=== PATIENT | female | born 1995 | race Caucasian/White ===

== ENCOUNTER → 2024-01-11 10:49 | Outpatient (CLI) | payer OTHER, SELFPAY ==
[2024-01-11 11:30] LABS: Add Manual Diff / Slide Review NO; Basophils Absolute Auto 0 /uL (0-100); Basophils Percent Auto 0.4 % (0-2); Eosinophils Absolute Auto 0 /uL (0-450); Eosinophils Percent Auto 0.5 % (2-4); Hematocrit 37.3 % (36-46); Lymphocytes Absolute Auto 700 /uL (1100-4500); Lymphocytes Percent Auto 7.7 % (25-40); Mean Corpuscular HGB Conc 34.9 % (30-36); Mean Corpuscular Hemoglobin 32.3 PG (26-34); Mean Corpuscular Volume 92.5 fL (80-100); Monocytes Absolute Auto 500 /uL (0-900); Monocytes Percent Auto 6.2 % (3-14); Neutrophils Absolute Auto 7400 /uL (1500-7000); Neutrophils Percent Auto 85.2 % (50-75); Platelet Count 210 X10^3/uL (150-400); Red Blood Cell Count 4.03 X10^6/uL (4.0-5.2); Red Cell Distribution Width 13.2 % (11.6-14.8); White Blood Cell Count 8.7 X10^3/uL (4.5-11.0)
[2024-01-11 11:40] LABS: Hemoglobin A1C% w Est Avg Glu 5.2 % (4.0-6.0)
[2024-01-11 11:46] LABS: Alanine Aminotransferase 16 IU/L (<35); Aspartate Aminotransferase 21 IU/L (14-36); BUN Creatinine Ratio 24.6 (6-22); Blood Urea Nitrogen 15 mg/dL (7-17); Estimated Glomerular Filt Rate > 60 mL/min (>60); Uric Acid 3.4 mg/dL (2.5-6.2)
[2024-01-11 12:11] LABS: Rubella Antibody IgG > 350.0 IU/mL (>15)
[2024-01-11 12:15] LABS: Hepatitis B Surface Antigen NEGATIVE s/c (NEGATIVE)
[2024-01-11 12:27] LABS: HIV 1 & 2 Ab/Ag 4th Gen Combo NEGATIVE (NEGATIVE)
[2024-01-11 12:31] LABS: Hep C Virus Ab w/Reflex Quant NEGATIVE s/c (NEGATIVE)
[2024-01-11 14:08] LABS: Creatinine Urine Random 61.2 mg/dL; Protein (Total) Urine Random 12 mg/dL (0-12); Protein Creatinine Ratio Urine 0.19 GRAM/24H
[2024-01-11 14:54] LABS: Urine N gonorrhoeae NOT DETECTED
[2024-01-11 14:56] LABS: Urine Chlamydia NOT DETECTED
[2024-01-12 09:51] LABS: Varicella IgG Antibody >4000 index (Immune >165)
[2024-01-15 06:59] LABS: RPR Screen Non Reactive (Non Reactive)
== END ==
PROVIDERS: Referring Provider Student in an Organized Health Care Education/Training Program; Visit Provider Student in an Organized Health Care Education/Training Program
DX: O09.899 Supervision of other high risk pregnancies, unspecified trimester (principal); Z94.0 Kidney transplant status
CPT/HCPCS: 36415; 80055; 82565; 82570; 83036; 84156; 84450; 84460; 84520; 84550; 86787; 86803; 86850; 86900; 86901; 87086; 87389; 87491; 87591

== ENCOUNTER → 2024-05-13 14:06 | Outpatient (CLI) | payer OTHER, SELFPAY ==
--- NOTE | 2024-05-13 | DI.US.S_ITS ---
PROCEDURE: US OB LIMITED INDICATIONS: Growth check OUTSIDE/PRIOR DATING DATA: Last menstrual period (LMP): Unknown LMP-based estimated date of delivery (SHAWN): Un known First dating scan (date and location): Not available Estimated date of delivery (SHAWN) from first dating scan: Not available The calculations are made using the working SHAWN of 07/19/2024 TECHNIQUE: Real-time scanning was performed of the fetus, with image documentation and biometric measurements. Endovaginal scanning: Not performed COMPARISON: [facility], , US OB <= 14 WEEKS FETUS, 01/11/2024, 10:50. FINDINGS: General: A single living intrauterine gestation is present. Presentation: Vertex Placenta: Placental position is anterior, without previa. Amniotic fluid index: 16.7 cm, normal range is 5-24 cm. Single deepest vertical pocket is 5.1 cm. heart rate: 165 beats per minute. Maternal cervical canal: Closed and measures 3.3 cm long. Normal lower limit is 2.5 cm. biometrics: Biparietal diameter: 8.0 cm, 32 weeks, 1 day Head circumference: 29.3 cm, 32 weeks, 2 days Abdominal circumference: 28.2 cm, 32 weeks, 2 days Femur length: 5.9 cm, 30 weeks, 6 days Clinically estimated gestational age: 30 weeks, 1 day Composite gestational age from present scan: 31 weeks, 6 days Estimated weight and percentile: 1844 g, 90% IMPRESSION: 1. Single live intrauterine gestation with fetus in vertex presentation. heart rate is 165 beats per minute. Normal ALEJANDRA at 16.7 cm. Cervix is closed and measures 3.3 cm in length. 2. Normal growth. Estimated weight is at 90%. We strive to produce accurate, complete, and clear reports of imaging services. To assist us in improving patient care, this report was composed using standard report templates and voice recognition software. Therefore, it may contain abnormal punctuation, insertions and/or omissions. Occasional wrong-word or sound-alike substitutions may occur. Though we review the report and make efforts to correct it, we do recommend that the report be read carefully in proper context to recognize any text inaccuracies. Dictated by: Jasvir Doran M.D. on 05/13/2024 at 17:45 Approved by: Jasvir Doran M.D. on 05/13/2024 at 17:47
== END ==
PROVIDERS: Referring Provider Student in an Organized Health Care Education/Training Program; Visit Provider Student in an Organized Health Care Education/Training Program
DX: O09.893 Supervision of other high risk pregnancies, third trimester (principal); O10.913 Unspecified pre-existing hypertension complicating pregnancy, third trimester; Z94.0 Kidney transplant status; Z3A.31 31 weeks gestation of pregnancy
CPT/HCPCS: 76815

== ENCOUNTER → 2024-06-23 09:31 | Outpatient (CLI) | payer OTHER, SELFPAY ==
[2024-06-24 08:45] LABS: Strep Grp B PCR POS for Grp B Strep
== END ==
PROVIDERS: Referring Provider Obstetrics & Gynecology; Visit Provider Obstetrics & Gynecology
DX: Z34.83 Encounter for supervision of other normal pregnancy, third trimester (principal)
CPT/HCPCS: 87653

== ENCOUNTER 2024-07-22 10:11 | Inpatient (IN) | payer OTHER, SELFPAY ==
[2024-07-22 11:56] VITALS: BP 127/84
--- NOTE | 2024-07-22 12:13 | PM.OBHP.1 ---
OB HPI Date/Time Date of admission: 07/22/24 Date Patient Seen: 07/22/24 Time Patient Seen: 12:13 History of Present Condition Chief complaint: LABOR : 2 Para: 1 Estimated Date of Delivery: 07/21/24 Estimated Gestational Age (weeks): 40+1 Narrative: Vane Albarran is a 28 year old female Comments: presenting for painful contractions since this morning. Denies loss of fluid or vaginal bleeding. History of Present care: good care Dating criteria: LMP confirmed by 1st trimester US Ultrasounds: normal mid trimester US Medical complications: other Narrative: Ultrasound Ultrasound Details:: Initial dating US at outside facility: [facility] 07/21/24 Dating US 12/14/23: [facility] IUP with CRL 2.06cm (8+5wks); normal appearing uterus, cervix, bilateral ovaries Anatomy with MFM 03/10/24: normal anatomy, anterior placenta, EFW 68%ile Growth sono 05/13/24: EFW 90%ile Specific Issues/Plans FSGS, s/p renal transplant 04/2022 (in right pelvis, [place] kidneys still in place)--> sees Dr. Gay Edwards @[facility], on prednisone, tacrolimus, azathioprine; following with [facility] Dr. Saritha Phillips, plan for monthly telemedicine consults [ ] serial growth 28, 32, 36wks--> 05/13 EFW 90%ile [ ] twice weekly NSTs at 32wks (pt declines) [ ] delivery 37-39wks per [facility] (pt declines until worsening medical issues or 41 weeks) cHTN (on carvedilol) with hx of superimposed preeclampsia--> tight control BPs <130/80; [x ] baseline pre-e labs (Cr 0.61), urine p:c (0.19); [ x] ASA GBS positive--> pt declines prophylactic antibiotics during labor Anemia--> H/H 10.6/31.3; [x ] repeat H/H at 36wks Rh negative--> [x ] rhogam 28wks (05/05/24) Hx of mediolateral episiotomy in G1, as well as PPH with D&C for retained POC at 6days Declines TDaP and other vaccinations in ; declined 1hr GTT, did 1wk of fingersticks which were normal Liam Assigned to Katie Preadmission Labs Blood type: 0 (-) negative -: Antibody screen: negative, Cystic fibrosis screen: unknown, GBS status: positive, HBsAG: negative, HIV: negative, HSV 1: unknown, HSV 2: unknown and RPR/VDLR: negative -: Chlamydia screen: not detected and Gonorrhea screen: not detected -: Rubella: immune and Varicella: immune HCT: 37.3 HCAB: negative PAP: Normal Evaluation Evaluation Baseline heart rate: 140 Variability: Moderate (11-25) monitor accelerations: Present Monitor Decelerations: Absent Contraction Frequency (minutes): 4 Status: Category l Dilation (cm): 4 Effacement (%): 70 station: -2 [facility] Medical History (Updated 06/30/24 @ 13:39 by Jyotsna Wilson DO) History of episiotomy Preeclampsia hemorrhage Peritoneal dialysis status 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 Surgical History (Updated 12/04/23 @ 09:39 by Jennifer Bryant RN) [place] teeth extracted H/O hand surgery Kidney transplant recipient (~2019) Family History (Updated 12/04/23 @ 09:40 by Jennifer Bryant RN) Mother Cathy's thyroiditis Brother Juvenile rheumatoid arthritis Grandmother Alzheimer's dementia Social History marital status: number of children: 1 household members: spouse and children lives independently: Yes caregiver/support person: Yes housing: house pets and animals: Yes (1 dog) education level: vocational occupational status: unemployed current occupational exposures/hazards: No special cesilia needs: No travel history: recent seatbelt use: always helmet use: Yes water heater temp set < 120 deg: Yes working smoke detector in home: Yes fire extinguisher in home: Yes carbon monox detector in home: Yes firearms in home: Yes firearms unloaded and locked: Yes do you feel safe at home: Yes Smoking Status: Never smoker second hand exposure: No alcohol intake: never substance use type: does not use during the past year weight has: other well-balanced diet: daily or most days daily servings fruits/ve-4 caffeine: No (occasional decaf) Type(s) of exercise: running frequency: 3-4 times per week duration: 30-45 minutes/day Meds Home Medications and Allergies Home Medications Medication Instructions Recorded Confirmed Type azathioprine 50 mg tablet (Imuran) 25 mg PO DAILY 12/04/23 07/08/24 History carvedilol 6.25 mg tablet 6.25 mg PO BID 12/04/23 07/08/24 History cholecalciferol (vitamin D3) 50 50 mcg PO DAILY 12/04/23 07/08/24 History mcg (2,000 unit) capsule magnesium 200 mg tablet 400 mg PO BID 12/04/23 07/08/24 History prednisone 5 mg tablet 7.5 mg PO DAILY 12/04/23 07/08/24 History vitamin-ferrous sulfate tab PO 12/04/23 07/08/24 History 27 mg iron-folic acid 0.8 mg tablet tacrolimus 1 mg capsule, 3 mg PO Q12H 12/04/23 07/08/24 History immediate-release blood sugar diagnostic (Blood #100 ea 04/07/24 07/08/24 Rx Glucose Test strips) blood-glucose meter (Blood Glucose #1 ea 04/07/24 07/08/24 Rx Monitoring kit) lancets #100 ea 04/07/24 07/08/24 Rx Allergies Allergy/AdvReac Type Severity Reaction Status Date / Time cephalexin Allergy Mild Rash Verified 07/15/24 09:10 adalimumab AdvReac Unknown Verified 07/15/24 09:10 etanercept AdvReac Unknown Verified 07/15/24 09:10 Review of Systems Review of Systems ROS: Yes All systems reviewed with the patient and are negative except as otherwise documented OB Exam Vital signs Blood Pressure: 127/84 Pulse Rate: 95 Respiratory Rate: 16 Temperature: 97.5 F [facility] Head: normal to inspection Resp Effort & Inspection: normal respiratory effort and able to speak in complete sentences Extremities Lower extremity: Yes normal to inspection GI Other: gravid, nontender, nondistended Objective Labs 07/22/24 11:34 07/22/24 11:31 Assessment and Plan Assessment and Plan Assessment and Plan narrative: 28yo at 40+1wks admitted in latent labor. -CBC, T&S on admission -continuous EFM -epidural PRN -GBS POSITIVE, however patient declines intrapartum antibiotics; patient has been counseled extensively regarding the risk to her baby, and patient declines -PPH risk moderate, given hx of hemorrhage -VTE risk low, SCDs with epidural -anticipate L&D Counseling: Common procedures and interventions related to the management of were explained to the patient, including assistance at vaginal delivery with episiotomy, vacuum, or forceps, use of medications to stop premature labor or induce labor, and assessment including auscultation (listening to the heart), use of electronic monitoring (external and / or internal), and use of scalp electrode and/or intrauterine pressure catheter.? It was also explained that approximately 20-30% of mothers have a need for delivery during their labor course. It was explained to the patient that , labor and delivery are ordinarily normal physiological events and can be expected to provide a healthy outcome for mother and baby in the majority of cases. However, there are complications that may arise during , labor, and delivery, such as: hemorrhage requiring administration of blood and/or blood products, surgical intervention, possibly even hysterectomy for life-saving purposes; possibility of infection requiring antibiotics, prolonged hospital stay, and rarely surgical intervention; possibility of blood clots;? possibility of retained products of conception requiring surgical intervention;? possibility of serious tears or injury to the vagina, cervix, perineum, or rectum;? possibility of injury to abdominal structures if delivery is required;? and rarely maternal or may occur. Time-Based Coding :: [30min] spent with patient and on the chart (including review of chart, obtaining history, exam, reviewing outside data, placing orders, documenting exam and treatment plan, and counseling patient) on [07/22/24].
[2024-07-22 12:21] VITALS: BP 127/84; PULSE 95; RESP 16; TEMP 36.4
[2024-07-22 12:21] LABS: Add Manual Diff / Slide Review NO; Basophils Absolute Auto 0 /uL (0-100); Basophils Percent Auto 0.3 % (0-2); Eosinophils Absolute Auto 100 /uL (0-450); Eosinophils Percent Auto 0.6 % (2-4); Hematocrit 32.6 % (36-46); Hemoglobin 11.5 g/dL (12.0-16.0); Lymphocytes Absolute Auto 900 /uL (1100-4500); Lymphocytes Percent Auto 8.2 % (25-40); Mean Corpuscular HGB Conc 35.4 % (30-36); Mean Corpuscular Hemoglobin 34.1 PG (26-34); Mean Corpuscular Volume 96.3 fL (80-100); Monocytes Absolute Auto 600 /uL (0-900); Monocytes Percent Auto 6.1 % (3-14); Neutrophils Absolute Auto 8900 /uL (1500-7000); Neutrophils Percent Auto 84.8 % (50-75); Platelet Count 187 X10^3/uL (150-400); Red Blood Cell Count 3.39 X10^6/uL (4.0-5.2); Red Cell Distribution Width 13.3 % (11.6-14.8); White Blood Cell Count 10.5 X10^3/uL (4.5-11.0)
[2024-07-22 12:39] LABS: Alanine Aminotransferase 16 IU/L (<35); Albumin 3.5 g/dL (3.5-5.0); Albumin Globulin Ratio 1.3 (1.0-2.8); Alkaline Phosphatase 131 U/L (38-126); Aspartate Aminotransferase 29 IU/L (14-36); BUN Creatinine Ratio 18.5 (6-22); Bilirubin Total 0.6 mg/dL (0.2-1.3); Blood Urea Nitrogen 15 mg/dL (7-17); Calcium 9.2 mg/dL (8.4-10.2); Carbon Dioxide 24 mmol/L (22-32); Chloride 104 mmol/L (98-107); Estimated Glomerular Filt Rate > 60 mL/min (>60); Globulin 2.6 g/dL (1.7-4.1); Glucose 105 mg/dL (70-100); HEMOLYSIS < 15 (0-50); Potassium 4.2 mmol/L (3.4-5.1); Sodium 132 mmol/L (137-145); Total Protein 6.1 g/dL (6.3-8.2)
[2024-07-22] MEDS: LACTATED RINGERS 1,000 ML 100 ML IV ×2 (16:55→17:58)
[2024-07-22] MEDS: TERBUTALINE 1 MG/ML VIAL 0.25 MG SUBCUT ×2 (17:04→17:42)
--- NOTE | 2024-07-22 18:22 | P.PNOB_ITS ---
Date/Time Date Patient Seen: 07/22/24 Time Patient Seen: 16:00 Pain Control Pain control: tolerating well Assessment and Plan Assessment: active labor Comments: 28yo at 40+1wks admitted in early labor. She has progressed unmedicated over the course of the afternoon to anterior lip/100/+1. Patient had an uncontrollable urge to push, thus pushing efforts were started around 5pm. Desp ite good maternal pushing efforts in different positions, vertex has not descended past +1. The anterior lip has slowly reduced during this time of pushing efforts. The heart rate tracing has been category 2 since her membranes ruptured at 5:15pm. There have been several prolonged decels that have resolved with position changes, IV fluids, and terbutaline administration x2. The position feels asynclitic, and I have not been able to turn the baby with manual rotation efforts. At this point, I have discussed with the patient that the fetus is too high in the pelvis to help with an operative vaginal delivery safely. Given that she has not made much progress in bringing the baby down, we discussed trying to get an epidural to see if this would help relax her pelvis in a way to allow the fetus to turn and come down OA. We also discussed that if she is not able to deliver the baby after another 1hr of pushing efforts, or if the heart rate tracing doesn't tolerate continued pushing, then I will have to recommend a . -pt desires to try an epidural at this time -once she is comfortable with this in place, will resume pushing efforts
--- NOTE | 2024-07-22 18:57 | P.PCN_ITS ---
Regional Block Pre-procedure Procedure: Continuous Lumbar Epidural for L&D Attending OB provider: Jyotsna Wilson PMH/ROS narrative: 28 y/o in active labor requesting LIBERTY. PSH/Anesthesia history narrative: See pre-anesthesia evaluation form for PSH/PMH/assessment. ASA Class: III Labs: Hct 32.6 % (36-46) L 07/22/24 11:34 Plt Count 187 X10^3/uL (150-400) 07/22/24 11:34 Medications: Current Medications Generic Name Dose Route Start Last Admin Trade Name Freq PRN Reason Stop Dose Admin Calcium Carbonate 1,000 mg 07/22/24 11:53 Calcium Carbonate 500 Mg Tab PO Q2HR PRN Dyspepsia Carboprost Tromethamine 250 mcg 07/22/24 11:53 Carboprost 250 Mcg/Ml Ampul IM Q90M PRN Bleeding Diphenhydramine HCl 25 mg 07/22/24 18:54 Diphenhydramine 50 Mg/Ml Vial IV Q10M PRN Pruritis Diphenhydramine HCl 25 mg 07/22/24 18:56 Diphenhydramine 50 Mg/Ml Vial IV 07/23/24 18:56 Q3HR PRN PRURITUS Ephedrine Sulfate 10 mg 07/22/24 18:54 Ephedrine 50 Mg/Ml Vial IV Q5M PRN Blood pressure decrease more than 20% of baseline. Fentanyl 50 mcg 07/22/24 11:53 Fentanyl 100 Mcg/2 Ml Inj IV Q1H PRN Pain, Moderate (4-6) Lactated Ringer's 1,000 mls @ 100 mls/hr 07/22/24 12:00 07/22/24 17:58 Lactated Ringers IV 07/22/24 21:59 100 mls/hr CONT FEDERICO Administration Oxytocin/Lactated Ringer's 30 unit in 500 mls @ 200 mls/hr 07/22/24 11:53 Oxytocin Premix IV CONT PRN Bleeding Protocol Tranexamic Acid 1,000 mg/ 100 mls @ 600 mls/hr 07/22/24 11:53 Sodium Chloride IV NOW PRN Bleeding Ampicillin Sodium 1,000 mg/ 100 mls @ 200 mls/hr 07/22/24 16:00 Sodium Chloride IV Q4H FEDERICO FENT 2MCG/ML BUPIV 0.125% EPI 200 mcg in 100 mls @ 8 mls/hr 07/22/24 18:45 Fentanyl/Bupiv/Ns 2mcg/Ml - 0.125% EPIDURAL CONT FEDERICO Lidocaine HCl 20 ml 07/22/24 11:53 Lidocaine 1% 20 Ml INJ INTRA-OP PRN Post Delivery Methylergonovine Maleate 0.2 mg 07/22/24 11:53 Methylergonovine 0.2 Mg Tablet PO Q6HR PRN Heavy Bleeding Methylergonovine Maleate 0.2 mg 07/22/24 11:53 Methylergonovine 0.2 Mg/Ml Vial IM NOW PRN Bleeding Mineral Oil 30 ml 07/22/24 11:53 Mineral Oil 30 Ml Udc TOP PRN PRN Version Misoprostol 800 mcg 07/22/24 11:53 Misoprostol 200 Mcg Tablet NH NOW PRN Bleeding Misoprostol 400 mcg 07/22/24 11:53 Misoprostol 200 Mcg Tablet SL NOW PRN Bleeding Naloxone HCl 0.2 mg 07/22/24 11:53 Naloxone 0.4 Mg/Ml Vial IV Q2MIN PRN Opiate Reversal Naloxone HCl 0.4 mg 07/22/24 18:56 Naloxone 0.4 Mg/Ml Vial IV Q2MIN PRN Opiate Reversal Naloxone HCl 0.1 mg 07/22/24 18:56 Naloxone 0.4 Mg/Ml Vial IV 07/22/24 18:57 NOW ONE Ondansetron HCl 4 mg 07/22/24 11:53 Ondansetron 4 Mg/2 Ml Inj IV Q4HR PRN Nausea And Vomiting Ondansetron HCl 4 mg 07/22/24 21:00 Ondansetron 4 Mg/2 Ml Inj IV 07/23/24 01:01 Q4HR [facility] Oxytocin 10 unit 07/22/24 11:53 Oxytocin 10 Unit/Ml Vial IM NOW PRN Bleeding Allergies: Allergies Allergy/AdvReac Type Severity Reaction Status Date / Time cephalexin Allergy Mild Rash Verified 07/15/24 09:10 adalimumab AdvReac Unknown Verified 07/15/24 09:10 etanercept AdvReac Unknown Verified 07/15/24 09:10 Procedure Insertion date: 07/22/24 Insertion time: 18:35 Prep/Local: 1% lidocaine (3mL to L3/L4 interspace. CHG to back for skin prep.) Interspace: L3/L4 Patient position: sitting Needle: 18 gauge Use It Bettertead ((27g Pencan through Hustead for CSE - 1mL of 0.25% bupivacaine intrathecal)) Loss of resistance with: saline JURGEN at (cm): 4 Catheter placed at SKIN (cm): 10 Catheter in SPACE (cm): 6 Insertion: No CSF, No Blood, No Paresthesia with insertion, No Paresthesia with injection and No Test dose reaction Initial Medications TEST DOSE time: 18:36 TEST DOSE: 1.5% lidocaine with epinephrine 1:200k (mL): 3 BOLUS DOSE med: other (No bolus dose given via epidural) Infusion INFUSION: 0.125% bupivacaine and with fentanyl 2 mcg/mL Initial rate (mL/hr): 8 Post-procedure Anesthesia date START: 07/22/24 Anesthesia time START: 18:26 Anesthesia date END: 07/22/24 Anesthesia time END: 19:50 Post-procedure Anesthesia Assessment: Yes CV function: HR/BP stable, Yes Resp function: RR/sat/airway adequate, Yes Post-op hydration adequate, Yes Pain control adequate, Yes Nausea & vomiting absent, Yes Temperature > 36 C and Yes Mental status appropriate
[2024-07-22] MEDS: METHYLERGONOVINE 0.2 MG/ML VIAL IM (20:00)
[2024-07-22] MEDS: OXYTOCIN PREMIX 30 UNIT/500 ML PLAST..BAG 200 UNIT IV (20:08)
--- NOTE | 2024-07-22 20:36 | PM.OBPRVD ---
Labor & Delivery Delivery date: 07/22/24 Intrapartal Events: Prolonged 2nd Stage > 2.5 hours Delivery monitor: external uterine and internal FHT Route of delivery: forceps Indication for instrumentation: other (arrest of descent) L&D Laceration Description: Perineal - 3rd Degree (3a) Delivery repair: vicryl Estimated blood loss (mL): 900 Quantitative Blood Loss: 1,191 Anesthesia Type: Epidural Complications: blood loss due to bleeding from laceration Narrative: The patient progressed to C/C/+1 without pitocin augmentation or epidural anesthesia, and pushed with good maternal effort for approximately 2hrs. During this time, the heart rate tracing was primarily category 2 with moderate variability with early/late/prolonged decels. The vertex was noted to be LOT. Attempts to manually rotate the vertex to direct OA or OP were unsuccessful. She accepted an epidural for anesthesia, and pushing efforts were started again. After 20 more min of pushing, there was descent of the head to +2 station, but no further. At this time, given the persistent category 2 tracing, she was counseled and consented for an attempted low forceps delivery. Anesthesia was noted to be adequate, the bladder was recently drained and pediatric care was at the bedside. The vertex was palpated again, and the sagittal suture was noted to be slightly off midline to the left, thus I felt the forcep blades could be applied. The blades of the [place] forceps were then placed without difficulty and checks confirmed appropriate placement. With several maternal expulsive efforts, as well as traction on the forceps, the vertex was delivered to , after which the forceps were disarticulated, followed by delivery of the vertex in LOP position and restituted LOT. The anterior shoulder delivered with gentle downward pressure. Nuchal cord x2 was noted and reduced. The posterior shoulder and rest of body delivered with ease. The cord was doubly clamped and cut after a 60sec delay with the infant placed on maternal abdomen. The placenta delivered spontaneously and was intact with a 3-vessel cord. The fundus was noted to be firm with bimanual massage and pitocin. Inspection of the cervix, vagina, and perineum was notable for a 3a laceration. Repair was performed using 3-0 Vicryl in a series of interrupted sutures, with the 2nd degree portion repaired in a running, unlocked fashion. Skin was reapproximated in a running, subcuticular fashion. At the end of the repair, all tissues noted to be hemostatic. During the repair, she received one dose of methergine to aid in uterine tone. Majority of the blood loss was noted to be due to the lacerations. At the end of the repair, all sponges were confirmed removed from the vagina, and lap/instrument counts were correct. The patient tolerated delivery well and remained in the labor room with the at the bedside. The infant was inspected and no bruising or forceps markings were noted. [place] Baby 1: gender: Male Presentation: vertex Position: Left Occiput Posterior Placenta delivery description: Spontaneous Cord Vessel Description: 3 Vessels, Nuchal Cord (x2) and Reduced score (1 min): 7 score (5 min): 9 weight: 9 lb 5.914 oz Plan for aftercare: Routine care (plan for repeat CBC in the AM; advised pt to use stool softeners due to 3a laceration)
[2024-07-22] MEDS: DERMOPLAST SPRAY 20% 60 ML 1 SPRAY TOP (23:49)
[2024-07-22] MEDS: WITCH HAZEL/GLYCERIN PADS 1 EACH TOP (23:50)
[2024-07-23] MEDS: ACETAMINOPHEN 325 MG TABLET 650 MG PO ×3 (01:17→16:43)
[2024-07-23 06:46] LABS: Add Manual Diff / Slide Review NO; Basophils Absolute Auto 0 /uL (0-100); Basophils Percent Auto 0.2 % (0-2); Eosinophils Absolute Auto 0 /uL (0-450); Eosinophils Percent Auto 0.3 % (2-4); Hematocrit 24.7 % (36-46); Hemoglobin 8.9 g/dL (12.0-16.0); Lymphocytes Absolute Auto 1200 /uL (1100-4500); Lymphocytes Percent Auto 8.5 % (25-40); Mean Corpuscular HGB Conc 35.9 % (30-36); Mean Corpuscular Hemoglobin 34.3 PG (26-34); Mean Corpuscular Volume 95.4 fL (80-100); Monocytes Absolute Auto 1600 /uL (0-900); Monocytes Percent Auto 11.5 % (3-14); Neutrophils Absolute Auto 11100 /uL (1500-7000); Neutrophils Percent Auto 79.5 % (50-75); Platelet Count 186 X10^3/uL (150-400); Red Blood Cell Count 2.59 X10^6/uL (4.0-5.2); Red Cell Distribution Width 13.2 % (11.6-14.8)
--- NOTE | 2024-07-23 08:38 | PM.OBPN.1 ---
Subjective - OB Subjective Patient comments: no complaints and pain well controlled Maidens baby status: doing well Maidens feeding status: exclusively breast feeding Narrative: PPD1 s/p FAVD, 3rd degree laceration, PPH with asymptomatic acute blood loss anemia Date Patient Seen: 07/23/24 Time Patient Seen: 07:45 Exam Vital Signs (past 8 hours): BP 115-127/73-83 HR 77-119 RR 16-18 Tm 100.3F/Tc 98.8F Const General: cooperative and other (pale appearing) Nutritional Appearance: average body habitus Orientation: alert, awake and oriented x3 Chest Chest: normal inspection of the chest Breast inspection: normal inspection of the breasts Resp Effort & Inspection: normal respiratory effort Cardio Pulses: normal peripheral pulses GI Inspection: normal to inspection Palpation: soft Other: fundus firm << umb Other: deferred per shared decision making with patient, robyn wnl per RN Skin General: no rashes or lesions noted Neuro General: patient alert, patient awake and patient oriented x3 Psych Mental Status: mental status grossly normal Judgment: fair Objective Labs 07/23/24 06:25 07/22/24 11:31 Labs: Laboratory Results - last 24 hr 07/22/24 07/22/24 07/23/24 11:31 11:34 06:25 WBC 10.5 14.0 H RBC 3.39 L 2.59 L Hgb 11.5 L 8.9 L Hct 32.6 L 24.7 L MCV 96.3 95.4 MCH 34.1 H 34.3 H MCHC 35.4 35.9 RDW 13.3 13.2 Plt Count 187 186 Neut % (Auto) 84.8 H 79.5 H Lymph % (Auto) 8.2 L 8.5 L [place] % (Auto) 6.1 11.5 Eos % (Auto) 0.6 L 0.3 L Baso % (Auto) 0.3 0.2 Neut # (Auto) 8900 H 05145 H Lymph # (Auto) 900 L 1200 [place] # (Auto) 600 1600 H Eos # (Auto) 100 0 Baso # (Auto) 0 0 Sodium 132 L Potassium 4.2 Chloride 104 Carbon Dioxide 24 BUN 15 Creatinine 0.81 Estimated GFR > 60 BUN/Creatinine Ratio 18.5 Glucose 105 H Calcium 9.2 Total Bilirubin 0.6 AST 29 ALT 16 Alkaline Phosphatase 131 H Total Protein 6.1 L Albumin 3.5 Globulin 2.6 Albumin/Globulin Ratio 1.3 Blood Type O Negative Antibody Screen Positive Antibody Identification Maternal Bleed Cancelled 07/23/24 06:53 WBC RBC Hgb Hct MCV MCH MCHC RDW Plt Count Neut % (Auto) Lymph % (Auto) [place] % (Auto) Eos % (Auto) Baso % (Auto) Neut # (Auto) Lymph # (Auto) [place] # (Auto) Eos # (Auto) Baso # (Auto) Sodium Potassium Chloride Carbon Dioxide BUN Creatinine Estimated GFR BUN/Creatinine Ratio Glucose Calcium Total Bilirubin AST ALT Alkaline Phosphatase Total Protein Albumin Globulin Albumin/Globulin Ratio Blood Type O Negative Antibody Screen Positive Antibody Identification Anti-D Maternal Bleed Assessment & Plan Assessment and Plan (1) Encounter for vaginal delivery: Status: Acute (2) Chronic hypertension affecting : Status: Acute (3) Current with history of kidney transplantation: Status: Acute (4) Rh negative status during : Status: Acute Plan day: 1 plan OB: routine care Comments: 28yo PPD1 s/p FAVD of LBMI c/b unanticipated LGA , 3rd degree perineal laceration with asymptomatic acute blood loss anemia routine care declines contraception Rh neg, s/p rhogam s/p renal transplant continue home medications (tacrolimus, azathioprine) normotensive on home carvedilol asymptomatic acute blood loss anemia pt declines iron transfusion encouraged to notify provider if interim s/sx following discharge in setting of ongoing lochia Pt requests expedited discharge to home, PPD1. Counseled regarding recommendation for continued observation secondary to known +GBS, <24h from delivery however pt states she would like to go home with who has been medically cleared per peds. Recommend close interval f/u 1wk telehealth (Katie) Time-Based Coding :: [TOTAL MINUTES] spent with patient and on the chart (including review of chart, obtaining history, exam, reviewing outside data, placing orders, documenting exam and treatment plan, and counseling patient) on [DATE].
--- NOTE | 2024-07-23 15:43 | PM.OBDS.1 ---
Discharge Providers Provider Date of admission: 07/22/24 10:11 Discharge Date: 07/23/24 Primary care physician: Doctor Carl MD Consults: 07/22/24 11:53 Consult to Anesthesiology Urgent Comment: Consulting Provider: Anesthesiologist Reason for consultation: Epidural 07/23/24 20:32 Consult to Epic Application Coordinator Routine Comment: Discharge provider: Bety Pacheco MD Summary Hospital Course Date Patient Seen: 07/23/24 Time Patient Seen: 07:30 Hospital Course: 28yo at 40w1d admitted to facility in active term labor. 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 Patient refused treatment for known GBS+ on admission. She progressed to full dilation and second stage was complicated by obstructed descent secondary to maternal exhaustion and position/size (LOP). Patient was counseled on trial of forceps vs primary section in setting of diminishing reserve per CEFM and desired former. Successful operative delivery per Dr. Wilson (forceps), 3rd degree perineal laceration with high EBL secondary to same. Repeat H/h PPD1 with asymptomatic acute blood loss anemia (Hgb 11 --> 8), pt declined recommendation for IV iron transfusion. Patient requested expedited discharge to home on PPD1. To receive rhogam prior to discharge for known Rh neg status. Close interval telehealth f/u 1wk (Katie) Peripartum Data Infant Delivery Method: Assisted Delivery Laceration Description: Perineal - 3rd Degree Procedures: Forceps assisted vaginal delivery (Katie) complications: other (asymptomatic acute blood loss anemia ) [place] 1: Gender: Male Disposition of : home Discharge Diagnosis (1) Encounter for vaginal delivery: Status: Acute (2) Chronic hypertension affecting : Status: Acute (3) Current with history of kidney transplantation: Status: Acute (4) Rh negative status during : Status: Acute Status at Discharge Cognitive/behavioral status at discharge: oriented Functional status at discharge: independent ambulation Overall status at discharge: patient is back to baseline Time Spent with Patient Time attestation: Total time spent providing and/or coordinating discharge services: Time spent: Greater than 30 minutes Objective Labs 07/23/24 06:25 07/22/24 11:31 Labs: Laboratory Results - last 24 hr 07/22/24 07/23/24 07/23/24 11:31 06:25 06:53 WBC 14.0 H RBC 2.59 L Hgb 8.9 L Hct 24.7 L MCV 95.4 MCH 34.3 H MCHC 35.9 RDW 13.2 Plt Count 186 Neut % (Auto) 79.5 H Lymph % (Auto) 8.5 L Andrews % (Auto) 11.5 Eos % (Auto) 0.3 L Baso % (Auto) 0.2 Neut # (Auto) 15921 H Lymph # (Auto) 1200 Andrews # (Auto) 1600 H Eos # (Auto) 0 Baso # (Auto) 0 Blood Type O Negative Antibody Screen Positive Antibody Identification Anti-D Anti-D Maternal Bleed Cancelled Negative 07/23/24 11:31 WBC RBC Hgb Hct MCV MCH MCHC RDW Plt Count Neut % (Auto) Lymph % (Auto) Andrews % (Auto) Eos % (Auto) Baso % (Auto) Neut # (Auto) Lymph # (Auto) Andrews # (Auto) Eos # (Auto) Baso # (Auto) Blood Type Antibody Screen Antibody Identification Anti-D Maternal Bleed Exam Vital Signs (past 8 hours): see morning AM rounds documentation Discharge Plan Discharge Plan Patient Disposition: Home Discharge orders & Medications Prescriptions: Continued vit-ferrous sulfat-FA 27 mg iron- 0.8 mg tablet PO prednisone 5 mg tablet 7.5 mg PO DAILY carvedilol 6.25 mg tablet 6.25 mg PO BID Rx Instructions: must administer with a meal/food cholecalciferol (vitamin D3) 50 mcg (2,000 unit) capsule 50 mcg PO DAILY magnesium 200 mg tablet 400 mg PO BID tacrolimus 1 mg capsule 3 mg PO Q12H azathioprine [Imuran] 50 mg tablet 25 mg PO DAILY Discontinued (DME) Blood Glucose Test Strip See Rx Instructions .ROUTE .MEDSUPPLY Qty: 100 0RF Rx Instructions: Testing blood sugars fasting and 2 hr PP 4 x daily (DME) lancets Misc See Rx Instructions .ROUTE .MEDSUPPLY Qty: 100 0RF Rx Instructions: Testing blood sugars fasting and 2 hr PP 4x daily (DME) blood-glucose meter [Blood Glucose Monitoring] Kit See Rx Instructions .ROUTE .MEDSUPPLY Qty: 1 0RF Rx Instructions: To use with testing fasting and 2 hr PP blood sugars 4x daily Follow up/Referrals: Jyotsna Wilson DO [Physician] - (2 week telehealth w/ Dr. Wilson: Aug 04 @ 4pm 6 week Appt w/ Dr. Wilson: @ 11:30am) Diet/Activity/Treatments Diet: Regular Skin/Wound/Dressing Care Report to your healthcare provider any signs of infection, such as:: chills, fever, increased pain and unusual drainage Visit Report/Discharge Packet Instructions: DI for Hemorrhage Stand Alone Forms: Discharge: Care, Patient Portal/API, Stroke Signs & Symptoms Discharge Data Primary Care Provider: Miscellaneous,Doctor
[2024-07-23] MEDS: RHO(D) IMMUNE GLOBULIN 1,500 UNIT SYRINGE 1500 UNIT IM (16:43)
[2024-07-24 06:37] LABS: Tacrolimus 5.6 ng/mL (2.0-20.0)
== END 2024-07-23 17:10 | disposition home or self-care (01) | DRG 768 ==
PROVIDERS: Admitting Provider Student in an Organized Health Care Education/Training Program; Referring Provider Student in an Organized Health Care Education/Training Program; Visit Provider Student in an Organized Health Care Education/Training Program
DX: O99.824 Streptococcus B carrier state complicating childbirth (principal); Z37.0 Single live birth; O90.81 Anemia of the puerperium; D62 Acute posthemorrhagic anemia; Z3A.40 40 weeks gestation of pregnancy; O63.1 Prolonged second stage (of labor); O76 Abnormality in fetal heart rate and rhythm complicating labor and delivery; O70.21 Third degree perineal laceration during delivery, IIIa; Z67.41 Type O blood, Rh negative
CPT/HCPCS: 36415; 59050; 80053; 80197; 85025; 85461; 86850; 86870; 86900; 86901; G0379; J2210; J2590; J2790; J3010